=== PATIENT | female | born 1965 | race Caucasian/White ===

== ENCOUNTER 2020-03-28 10:36 | Inpatient (IN) | payer BC ==
[~2020-03-28] VITALS: Ht 154.9 cm; Wt 56.4 kg
[2020-03-28] MEDS ORDERED: normal saline 1000ML IV soln IV ONE (11:00)
[2020-03-28] MEDS ORDERED: pantoprazole 40 MG vial IV ONE (11:00)
[2020-03-28] MEDS ORDERED: famotidine/PF 10 mg/ml inj IV ONE (11:00)
[2020-03-28 11:30] LABS: BASOPHILS # (AUTO) 0.1 X10'3 (0-0.2); BASOPHILS % (AUTO) 1.1 % (0-1); EOSINOPHILS # (AUTO) 0.2 X10'3 (0-0.9); EOSINOPHILS % (AUTO) 2.7 % (0-6); HEMOGLOBIN 12.6 g/dl (12.0-16.0); LYMPHOCYTES # (AUTO) 1.7 X10'3 (1.1-4.8); LYMPHOCYTES % (AUTO) 25.4 % (21-51); MEAN CORPUSCULAR HEMOGLOBIN 31.6 PG (27.0-31.0); MEAN CORPUSCULAR HGB CONC 33.1 g/dL (33.0-36.5); MEAN CORPUSCULAR VOLUME 95.5 FL (78-98); MONOCYTES # (AUTO) 0.5 X10'3 (0-0.9); MONOCYTES % (AUTO) 7.3 % (2-12); NEUTROPHILS # (AUTO) 4.4 X10'3 (1.8-7.7); NEUTROPHILS % (AUTO) 63.5 % (42-75); PLATELET COUNT 361 X10'3 (140-440); RED BLOOD COUNT 3.98 X10'6 (4.20-5.60); RED CELL DISTRIBUTION WIDTH 13.1 % (11.5-14.5); WHITE BLOOD COUNT 6.9 X10'3 (4.5-11.0)
[2020-03-28 11:44] LABS: PARTIAL THROMBOPLASTIN TIME 26 SECONDS (22-32)
[2020-03-28 11:47] LABS: ALANINE AMINOTRANSFERASE 17 U/L (12-78); ALBUMIN 4.4 G/DL (3.4-5.0); ALBUMIN/GLOBULIN RATIO 1.3 (1.1-1.5); ALKALINE PHOSPHATASE 97 IU/L (46-116); ANION GAP 3 (8-16); ASPARTATE AMINO TRANSFERASE 20 U/L (10-37); BILIRUBIN,TOTAL 0.3 MG/DL (0.1-1.0); BLOOD UREA NITROGEN 15 MG/DL (7-18); BUN/CREATININE RATIO 20.3 (6.6-38.0); CALCIUM 9.2 MG/DL (8.5-10.1); CHLORIDE 103 MMOL/L (99-107); CREATININE 0.74 MG/DL (0.40-0.90); GLUCOSE 122 MG/DL (70-104); LIPASE 183 U/L (73-393); POTASSIUM 4.6 MMOL/L (3.5-5.1); SODIUM 140 MMOL/L (135-145); TOTAL CARBON DIOXIDE 33.6 MMOL/L (24-32); TOTAL PROTEIN 7.8 G/DL (6.4-8.2); eGFR 81 ML/MIN
[2020-03-28] MEDS: diatr meglu/diatrizoate 30ml oral sol.-(3 dose) bottle PO SCH ×3 (12:34→13:20)
[2020-03-28] MEDS: pantoprazole 40MG/NS 100ML BAG 100 ML IV SCH ×3 (12:37→23:22)
--- NOTE | 2020-03-28 14:28 | NUR ---
PT IS ANTI D PER LAB WILL NOTIFIY THE HOSPITALIST WHEN MD COMES TO ASSESS PT.
[2020-03-28] MEDS ORDERED: ONDA4TAB12 PO (14:40)
[2020-03-28] MEDS ORDERED: magnesium hydroxide 30ml (MOM) UD suspension PO PRN ×2 (15:35→16:00)
[2020-03-28] MEDS ORDERED: acetaminophen 325mg tablet PO PRN ×3 (15:35→16:00)
[2020-03-28] MEDS ORDERED: mag hydrox/Alum hydrox/simeth 30ml oral suspension PO PRN ×2 (15:35→16:00)
[2020-03-28] MEDS: normal saline 1000ml 1,000 ML IV SCH (15:56)
[2020-03-28] MEDS ORDERED: magnesium 4gm in 100ml NS 100 ML IV PRN (16:00)
[2020-03-28] MEDS ORDERED: magnesium 2GM in 50ml NS 50 ML IV PRN (16:00)
[2020-03-28] MEDS ORDERED: HYDROcodone/acetaminophen 10/325mg tab PO PRN (16:00)
[2020-03-28] MEDS ORDERED: metoclopramide 5 mg/ml inj IV PRN (16:00)
[2020-03-28] MEDS ORDERED: magnesium Cl slow-release 64mg tablet PO PRN (16:00)
[2020-03-28] MEDS ORDERED: diphenhydrAMINE 50 mg/ml inj IV PRN (16:00)
[2020-03-28] MEDS ORDERED: potassium CL 10mEq/100ml bag 100 ML IV PRN ×2 (16:00)
[2020-03-28] MEDS ORDERED: potassium Cl 20 mEq SR tablet PO PRN ×2 (16:00)
[2020-03-28] MEDS ORDERED: ondansetron/PF 4mg/2ml inj IV PRN (16:00)
[2020-03-28] MEDS ORDERED: morphine 2 MG/ML inj. syringe IV PRN ×2 (16:00)
[2020-03-28] MEDS ORDERED: HYDROcodone/acetaminophen 5mg/325mg tablet PO PRN (16:00)
[2020-03-28] MEDS ORDERED: diphenhydrAMINE 25mg capsule PO PRN (16:00)
[2020-03-28] MEDS ORDERED: acetaminophen 650mg rectal suppository RC PRN (16:00)
[2020-03-28] MEDS ORDERED: bisacodyl 10mg suppository rectal RC PRN (16:00)
[2020-03-28 16:19] LABS: HEMOGLOBIN A1C 5.8 % (4.5-6.2)
--- NOTE | 2020-03-28 16:25 | NUR ---
gi lab called and a prep needs to be ordered for her procedure tomorrow afternoon, Hospitalist was paged awaiting call back
[2020-03-28 17:48] LABS: CLARITY,URINE CLEAR (Clear); COLOR,URINE YELLOW (Yellow); GLUCOSE, URINE NEGATIVE (Neg); KETONES,URINE NEGATIVE (Neg); LEUKOCYTE ESTERASE ,URINE NEGATIVE (Neg); NITRITES, URINE NEGATIVE (Neg); OCCULT BLOOD,URINE NEGATIVE (Neg); PROTEIN,URINE NEGATIVE (Neg); UROBILINOGEN,URINE 0.2 E.U/dL (0.2-1.0)
[2020-03-28 17:55] LABS: UA COLLECTION TYPE CLN CATCH MIDSTREAM
[2020-03-28] MEDS ORDERED: pantoprazole 40MG/NS 100ML BAG 100 ML IV ONE (17:56)
[2020-03-28] MEDS: K and/or MAG REPLACEMENT MC SCH (20:00)
[2020-03-28] MEDS ORDERED: PEG 3350/Na sulf,bicarb,Cl/KCl oral sol 4 liter bottle PO ONE (20:00)
--- NOTE | 2020-03-28 20:29 | NUR ---
Patient just arrived to floor via gurney. Called down to ER to get report from Cassie BRANTLEY.
[2020-03-28 20:45] VITALS: BP 141/62
[2020-03-28 22:00] VITALS: BP 122/53
[2020-03-28] MEDS: ondansetron/PF 4mg/2ml inj IV PRN (22:16)
--- NOTE | 2020-03-28 22:55 | NUR ---
Problems reprioritized. Patient report given, questions answered & plan of care reviewed with Fidencio BRANTLEY.
--- NOTE | 2020-03-28 22:57 | NUR ---
Patient in room PCU 3016. I have received report from STANLEY BRANTLEY and had the opportunity to ask questions and assume patient care.
--- NOTE | 2020-03-28 23:51 | NUR ---
Protonix IV medication started late. Communication with the pharmacy. After report @[id number] started the protonix. Medication currently inf.
[2020-03-29] VITALS (18 sets, daily range): BP systolic 103–126; BP diastolic 50–76
[2020-03-29] MEDS: normal saline 1000ml 1,000 ML IV SCH ×3 (01:56→21:56)
[2020-03-29] MEDS: pantoprazole 40MG/NS 100ML BAG 100 ML IV SCH ×5 (02:59→21:46)
[2020-03-29 05:51] LABS: BASOPHILS % (AUTO) 0.6 % (0-1); EOSINOPHILS # (AUTO) 0.2 X10'3 (0-0.9); HEMOGLOBIN 10.3 g/dl (12.0-16.0); LYMPHOCYTES % (AUTO) 39.3 % (21-51); MEAN CORPUSCULAR HEMOGLOBIN 32.3 PG (27.0-31.0); MEAN CORPUSCULAR HGB CONC 33.1 g/dL (33.0-36.5); MEAN CORPUSCULAR VOLUME 97.5 FL (78-98); MEAN PLATELET VOLUME 7.4 FL (7.4-10.4); MONOCYTES # (AUTO) 0.4 X10'3 (0-0.9); MONOCYTES % (AUTO) 8.4 % (2-12); NEUTROPHILS # (AUTO) 2.4 X10'3 (1.8-7.7); NEUTROPHILS % (AUTO) 47.7 % (42-75); PLATELET COUNT 278 X10'3 (140-440); RED BLOOD COUNT 3.18 X10'6 (4.20-5.60); RED CELL DISTRIBUTION WIDTH 13.4 % (11.5-14.5)
[2020-03-29 06:03] LABS: ALANINE AMINOTRANSFERASE 12 U/L (12-78); ALBUMIN 3.2 G/DL (3.4-5.0); ALBUMIN/GLOBULIN RATIO 1.4 (1.1-1.5); ALKALINE PHOSPHATASE 72 IU/L (46-116); ANION GAP 7 (8-16); ASPARTATE AMINO TRANSFERASE 10 U/L (10-37); BILIRUBIN,TOTAL 0.4 MG/DL (0.1-1.0); BLOOD UREA NITROGEN 7 MG/DL (7-18); BUN/CREATININE RATIO 9.3 (6.6-38.0); CALCIUM 8.1 MG/DL (8.5-10.1); CHLORIDE 110 MMOL/L (99-107); CHOL/HDL RATIO 3.2 (0.00-4.99); CHOLESTEROL 175 MG/DL (0-200); CREATININE 0.75 MG/DL (0.40-0.90); GLUCOSE 87 MG/DL (70-104); HDL CHOLESTEROL 54 MG/DL (35-60); LDL CHOLESTEROL 113 MG/DL (50-100); MAGNESIUM 1.6 MG/DL (1.5-2.4); PHOSPHORUS 3.2 MG/DL (2.3-4.5); POTASSIUM 4.2 MMOL/L (3.5-5.1); SODIUM 143 MMOL/L (135-145); TOTAL CARBON DIOXIDE 26.2 MMOL/L (24-32); TOTAL PROTEIN 5.5 G/DL (6.4-8.2); TRIGLYCERIDES 80 MG/DL (20-135); eGFR 80 ML/MIN
--- NOTE | 2020-03-29 06:09 | NUR ---
Problems reprioritized. Patient report given, questions answered & plan of care reviewed with Isis BRANTLEY.
--- NOTE | 2020-03-29 06:38 | NUR ---
Patient in room PCU 3016. I have received report from KARON Nicolas and had the opportunity to ask questions and assume patient care.
[2020-03-29] MEDS: K and/or MAG REPLACEMENT MC SCH ×2 (08:00→20:00)
[2020-03-29] MEDS ORDERED: fentaNYL/PF 50MCG/1 ML 2ML syringe ONE (16:50)
[2020-03-29] MEDS ORDERED: MIDAZolam 5mg/5ml vial ONE (16:51)
[2020-03-29] MEDS ORDERED: LIDOcaine Viscous 15ml cup ONE (16:51)
--- NOTE | 2020-03-29 18:02 | NUR ---
Problems reprioritized. Patient report given, questions answered & plan of care reviewed with KARON Nicolas.
--- NOTE | 2020-03-29 18:13 | NUR ---
Patient in room U 3016. I have received report from Cassie BRANTLEY and had the opportunity to ask questions and assume patient care. Addendum: 03/29/20 at 1814 by Fidencio Monte RN Received report from Isis BRANTLEY, not Cassie BRANTLEY
[2020-03-29] MEDS: ondansetron/PF 4mg/2ml inj IV PRN (23:33)
[2020-03-30] MEDS: pantoprazole 40MG/NS 100ML BAG 100 ML IV SCH ×2 (01:12→06:04)
[2020-03-30 02:00] VITALS: BP 122/58
[2020-03-30 06:05] LABS: BASOPHILS % (AUTO) 0.2 % (0-1); EOSINOPHILS % (AUTO) 0.2 % (0-6); HEMATOCRIT 32.3 % (35.0-45.0); HEMOGLOBIN 10.9 g/dl (12.0-16.0); LYMPHOCYTES # (AUTO) 1.4 X10'3 (1.1-4.8); LYMPHOCYTES % (AUTO) 13.8 % (21-51); MEAN CORPUSCULAR HEMOGLOBIN 32.2 PG (27.0-31.0); MEAN CORPUSCULAR HGB CONC 33.7 g/dL (33.0-36.5); MEAN CORPUSCULAR VOLUME 95.5 FL (78-98); MEAN PLATELET VOLUME 7.2 FL (7.4-10.4); MONOCYTES # (AUTO) 0.5 X10'3 (0-0.9); MONOCYTES % (AUTO) 5.3 % (2-12); NEUTROPHILS # (AUTO) 8.1 X10'3 (1.8-7.7); NEUTROPHILS % (AUTO) 80.5 % (42-75); PLATELET COUNT 305 X10'3 (140-440); RED BLOOD COUNT 3.38 X10'6 (4.20-5.60); WHITE BLOOD COUNT 10.1 X10'3 (4.5-11.0)
--- NOTE | 2020-03-30 06:12 | NUR ---
Patient in room PCU 3016. I have received report from KARON Nicolas and had the opportunity to ask questions and assume patient care.
--- NOTE | 2020-03-30 06:18 | NUR ---
Problems reprioritized. Patient report given, questions answered & plan of care reviewed with Isis BRANTLEY.
[2020-03-30 06:20] LABS: ALANINE AMINOTRANSFERASE 15 U/L (12-78); ALBUMIN 3.5 G/DL (3.4-5.0); ALBUMIN/GLOBULIN RATIO 1.3 (1.1-1.5); ALKALINE PHOSPHATASE 83 IU/L (46-116); ANION GAP 15 (8-16); ASPARTATE AMINO TRANSFERASE 15 U/L (10-37); BILIRUBIN,TOTAL 0.7 MG/DL (0.1-1.0); BLOOD UREA NITROGEN 11 MG/DL (7-18); BUN/CREATININE RATIO 13.8 (6.6-38.0); CALCIUM 8.2 MG/DL (8.5-10.1); CHLORIDE 102 MMOL/L (99-107); GLUCOSE 62 MG/DL (70-104); MAGNESIUM 1.3 MG/DL (1.5-2.4); PHOSPHORUS 4.4 MG/DL (2.3-4.5); SODIUM 137 MMOL/L (135-145); TOTAL CARBON DIOXIDE 19.9 MMOL/L (24-32); TOTAL PROTEIN 6.1 G/DL (6.4-8.2); eGFR 74 ML/MIN
[2020-03-30 07:00] VITALS: BP 110/57
--- NOTE | 2020-03-30 07:30 | NUR ---
Pt declining IV protonix, will continue to monitor.
[2020-03-30] MEDS ORDERED: PANT40TA54 PO (10:22)
--- NOTE | 2020-03-30 12:09 | NUR ---
Pt stable for discharge per MD order. All discharge instructions reviewed with patient and all questions answered. New prescription faxed to pharmacy. Followup appointment made for patient by nurse with Dr. Clemens. PIV discontinued, cannula intact. Telemetry discontinued, radio television announcer notified. All belongings collected and sent with patient. Patient picked up in private vehicle by family member, wheeled to lobby by staff.
== END 2020-03-30 12:07 | disposition home or self-care (01) | DRG 393 ==
LOC: ER 10:37 → ED HOLD 15:32 → PCU 3S 20:37
PROVIDERS: ADMIT Family Medicine; ATTEND Family Medicine
PROC: 0DB68ZX Excision of Stomach, Via Natural or Artificial Opening Endoscopic, Diagnostic (ICD-10-PCS; principal; 2020-03-29)
PROC: 0DJD8ZZ Inspection of Lower Intestinal Tract, Via Natural or Artificial Opening Endoscopic (ICD-10-PCS; 2020-03-29)
DX: K64.8 Other hemorrhoids (principal); K29.61 Other gastritis with bleeding; K21.0 Gastro-esophageal reflux disease with esophagitis; K64.4 Residual hemorrhoidal skin tags; Z82.49 Family history of ischemic heart disease and other diseases of the circulatory system; Z87.891 Personal history of nicotine dependence; Z90.710 Acquired absence of both cervix and uterus
CPT/HCPCS: 36415; 43239; 45378; 71045; 74176; 80053; 80061; 81003; 83036; 83690; 83735; 84100; 85025; 85610; 85730; 86870; 86885; 86900; 86901; 86902; 86905; 87081; 93005; 99152; 99153; 99285; A4620; C9113; G0378; J2250; J2405; J3010; J3490; J7030; J7040; Q0163; Q9963

== ENCOUNTER 2022-03-05 11:09 | Emergency (ER) | payer OTHER, BC ==
[~2022-03-05] VITALS: Ht 154.9 cm; Wt 56.4 kg
[~2022-03-05 11:09] MED LIST: ONDA4TAB12 PO; PANT40TA54 PO
[2022-03-05 11:33] VITALS: BP 134/59
== END 2022-03-05 13:07 | disposition home or self-care (01) ==
LOC: ER 11:10
DX: T50.905A Adverse effect of unspecified drugs, medicaments and biological substances, initial encounter (principal); R07.0 Pain in throat; R11.10 Vomiting, unspecified; R40.0 Somnolence; Z90.710 Acquired absence of both cervix and uterus; Z79.899 Other long term (current) drug therapy; Y92.89 Other specified places as the place of occurrence of the external cause
CPT/HCPCS: 99281

== ENCOUNTER 2022-08-09 10:25 | Emergency (ER) | payer BC, OTHER ==
[~2022-08-09] VITALS: Ht 154.9 cm; Wt 60.5 kg
[2022-08-09 10:53] VITALS: BP 125/52
== END 2022-08-09 12:08 | disposition home or self-care (01) ==
LOC: ER 10:25
DX: R53.1 Weakness (principal); Z90.710 Acquired absence of both cervix and uterus
CPT/HCPCS: 99281

== ENCOUNTER 2022-08-17 13:18 | Emergency (ER) | payer OTHER ==
[~2022-08-17] VITALS: Ht 154.9 cm; Wt 60.5 kg
[2022-08-17 13:21] VITALS: BP 125/72
== END 2022-08-17 14:37 | disposition home or self-care (01) ==
LOC: ER 13:19
DX: G81.91 Hemiplegia, unspecified affecting right dominant side (principal); Z90.710 Acquired absence of both cervix and uterus
CPT/HCPCS: 99281

== ENCOUNTER 2024-04-08 10:37 | Emergency (ER) | payer OTHER ==
[~2024-04-08] VITALS: Ht 154.9 cm; Wt 62.4 kg
[~2024-04-08 10:37] MED LIST changes: +ONDA-243 PO; -ONDA4TAB12 PO
[2024-04-08] MEDS ORDERED: DIPH25CA83 PO (11:49)
[2024-04-08 11:58] VITALS: BP 122/76; PULSE 74; RESP 14; TEMP 97.8; O2SAT 97
== END 2024-04-08 12:06 | disposition home or self-care (01) ==
LOC: ER 10:37
DX: T63.441A Toxic effect of venom of bees, accidental (unintentional), initial encounter (principal); Z79.899 Other long term (current) drug therapy; Z90.710 Acquired absence of both cervix and uterus; Y92.89 Other specified places as the place of occurrence of the external cause
CPT/HCPCS: 99282

== ENCOUNTER 2024-04-10 11:31 | Emergency (ER) | payer OTHER ==
[~2024-04-10] VITALS: Ht 154.9 cm; Wt 60.7 kg
[~2024-04-10 11:31] MED LIST changes: +DIPH25CA83 PO
[2024-04-10 11:53] VITALS: PULSE 77; RESP 18; O2SAT 98
[2024-04-10] MEDS ORDERED: PRED10TA23 PO (14:44)
[2024-04-10] MEDS: triamcinolone acetonide 40mg/ml inj IM ONE (14:48)
[2024-04-10 14:51] VITALS: TEMP 99
== END 2024-04-10 14:59 | disposition home or self-care (01) ==
LOC: ER 11:32
DX: H01.8 Other specified inflammations of eyelid (principal); Z91.030 Bee allergy status; Z79.899 Other long term (current) drug therapy; Z90.710 Acquired absence of both cervix and uterus
CPT/HCPCS: 96372; 99283; J3301